=== PATIENT | male | born 1945 | race Caucasian/White ===

== ENCOUNTER 2020-06-28 19:11 | Inpatient (IN) | payer MEDICARE ==
[~2020-06-28 19:11] MED LIST: ASCORBIC ACID500 MG PO; ASPIRIN EC81 MG PO; B-COMPLEX TABL0.4 MG PO; COUMADIN5 MG PO; COUMADIN7.5 MG PO; COZAAR50 MG PO; DITROPAN5 MG PO; KLOR-CON M 1010 MEQ PO; LASIX40 MG PO; LIPITOR40 MG PO; MULTIVITAMINS1 EAC1 PO; NORCO 5-325 TA1 EACH PO; NORVASC5 MG PO; PANTOPRAZOLE SO40 MG PO; PREDNISONE5 MG PO; TERAZOSIN HCL10 MG PO; VALACYCLOVIR1000 MG PO; VIT C-ROSE HIP500 MG PO; VITAMIN E200 UNI1 PO
[2020-06-28 19:56] LABS: BASOPHIL 0.1 % (0-2); EOSINOPHIL 0 % (0-7); HCT 45.5 % (42.0-52.0); HGB 15.5 g/dl (13.2-18.0); LYMPHOCYTE 5.6 % (15-48); MCH 31.4 pg (25.0-31.0); MCHC 34.1 g/dL (32.0-36.0); MCV 92.1 fL (78.0-100.0); MONOCYTE 7.8 % (0-12); MPV 10.1 fL (6.0-9.5); NEUTROPHIL 85.7 % (41-80); NRBC 0; PLT 273 K/uL (150-400); RBC 4.94 M/uL (4.70-6.00); RDW 13.2 % (11.5-14.0)
[2020-06-28 19:59] LABS: ALBUMIN 3.7 g/dL (3.4-5.0); BILIRUBIN - TOTAL 1.2 mg/dL (0.2-1.0); BUN/CREAT RATIO (CALC) 13.9 RATIO; CREATININE 1.37 mg/dL (0.67-1.17); GLOBULIN (CALCULATION) 3.8 g/dL; POTASSIUM 3.4 mmol/L (3.5-5.1); TOTAL PROTEIN 7.5 g/dL (6.4-8.2)
[2020-06-28 20:01] LABS: INR 2.53 (0.9-1.2); PTT 47.9 SECONDS (22.2-34.7); WBC 21.4 K/uL (4.0-10.5)
[2020-06-28 20:03] LABS: LACTIC ACID 2.2 mmol/L (0.4-1.9)
[2020-06-28 20:05] LABS: BILIRUBIN NEGATIVE (NEGATIVE); BLOOD 3+ Ery/uL (NEGATIVE); CLARITY CLEAR (CLEAR); COLOR YELLOW (YELLOW); GLUCOSE (U) NORMAL (NORMAL); LEUKOCYTES 1+ Leu/uL (NEGATIVE); NITRITE NEGATIVE (NEGATIVE); PROTEIN 1+ mg/dL (NEGATIVE); UROBILINOGEN 0.2 mg/dL (0.2-1.0)
[2020-06-28 20:18] LABS: BACTERIA 3+; SQUAMOUS EPITHELIAL CELLS RARE; URINARY WBC 20-50
[2020-06-28 20:32] LABS: CORONAVIRUS 2019 SARS-COV-2 NEGATIVE (NEGATIVE); INFLUENZA A NAA NEGATIVE (NEGATIVE)
[2020-06-28] MEDS ORDERED: ALFUZOSIN HCL E10 MG PO (21:41)
[2020-06-28] MEDS ORDERED: FINASTERIDE5 MG PO (21:41)
[2020-06-28] MEDS ORDERED: TRAZODONE HCL50 MG PO (21:42)
[2020-06-28] MEDS ORDERED: WARFARIN SODIUM5 MG PO (21:44)
[2020-06-28] MEDS ORDERED: NORVASC5 MG PO (23:43)
[2020-06-28] MEDS ORDERED: LASIX40 MG PO (23:44)
[2020-06-28] MEDS ORDERED: LIPITOR40 MG PO (23:44)
[2020-06-28] MEDS ORDERED: COZAAR50 MG PO (23:45)
[2020-06-28] MEDS ORDERED: MULTI-DAY PLUS1 EAC1 PO (23:46)
[2020-06-28] MEDS ORDERED: TERAZOSIN HCL10 MG PO (23:47)
[2020-06-28] MEDS ORDERED: JANTOVEN5 MG PO (23:48)
[2020-06-28] MEDS ORDERED: WARFARIN SODIU2.5 MG PO (23:49)
--- NOTE | 2020-06-29 01:36 | NUR ---
2310: PT RECIEVED ADMIT FROM ED. VSS. PT ORIENTED TO ROOM.
[2020-06-29 06:48] LABS: BASOPHIL 0.2 % (0-2); EOSINOPHIL 0.1 % (0-7); HCT 37.1 % (42.0-52.0); HGB 12.8 g/dl (13.2-18.0); MCH 31.8 pg (25.0-31.0); MCHC 34.5 g/dL (32.0-36.0); MCV 92.3 fL (78.0-100.0); MONOCYTE 3.3 % (0-12); NRBC 0; PLT 209 K/uL (150-400); RBC 4.02 M/uL (4.70-6.00); RDW 13.2 % (11.5-14.0); WBC 15.9 K/uL (4.0-10.5)
[2020-06-29 06:49] LABS: NEUTROPHIL 91.9 % (41-80)
[2020-06-29 07:01] LABS: INR 2.96 (0.9-1.2); PROTHROMBIN TIME 29.4 SECONDS (11.4-13.6)
[2020-06-29 07:16] LABS: ALBUMIN 3.1 g/dL (3.4-5.0); BILIRUBIN - TOTAL 1.3 mg/dL (0.2-1.0); BUN/CREAT RATIO (CALC) 17.3 RATIO; CREATININE 1.27 mg/dL (0.67-1.17); GLOBULIN (CALCULATION) 3.2 g/dL; TOTAL PROTEIN 6.3 g/dL (6.4-8.2)
[2020-06-29] MEDS ORDERED: ADULT LOW DOSE81 MG PO (09:21)
[2020-06-29] MEDS ORDERED: PROTONIX 40MG T40 MG PO (09:21)
[2020-06-29] MEDS ORDERED: K-DUR20 MEQ PO (09:22)
--- NOTE | 2020-06-29 14:01 | NUR ---
1230 BLADDER SCAN PERFORMED, 297 ML NOTED. ABY DREW AND DR LOMBARDO NOTIFIED
[2020-06-30 06:13] LABS: BASOPHIL 0.3 % (0-2); EOSINOPHIL 1.6 % (0-7); HCT 36.5 % (42.0-52.0); HGB 12.5 g/dl (13.2-18.0); LYMPHOCYTE 7.2 % (15-48); MCH 31.2 pg (25.0-31.0); MCHC 34.2 g/dL (32.0-36.0); MONOCYTE 9.9 % (0-12); MPV 10.5 fL (6.0-9.5); NEUTROPHIL 80.4 % (41-80); NRBC 0; PLT 197 K/uL (150-400); RBC 4.01 M/uL (4.70-6.00); RDW 13.1 % (11.5-14.0); WBC 15.8 K/uL (4.0-10.5)
[2020-06-30 06:25] LABS: INR 3.42 (0.9-1.2); PROTHROMBIN TIME 32.9 SECONDS (11.4-13.6)
[2020-06-30 06:40] LABS: ALBUMIN 2.6 g/dL (3.4-5.0); BILIRUBIN - TOTAL 0.8 mg/dL (0.2-1.0); BUN/CREAT RATIO (CALC) 16.3 RATIO; CREATININE 1.04 mg/dL (0.67-1.17); GLOBULIN (CALCULATION) 3.5 g/dL; POTASSIUM 3.4 mmol/L (3.5-5.1); TOTAL PROTEIN 6.1 g/dL (6.4-8.2)
--- NOTE | 2020-07-01 00:20 | NUR ---
0005: Yris RIBERA APRN NOTIFIED OF BETSY 101.4
[2020-07-01 06:42] LABS: BASOPHIL 0.2 % (0-2); EOSINOPHIL 0.1 % (0-7); HCT 37.7 % (42.0-52.0); MCH 31.2 pg (25.0-31.0); MCHC 34.5 g/dL (32.0-36.0); MCV 90.4 fL (78.0-100.0); MONOCYTE 8.1 % (0-12); MPV 10.5 fL (6.0-9.5); NEUTROPHIL 84.9 % (41-80); NRBC 0; PLT 205 K/uL (150-400); RBC 4.17 M/uL (4.70-6.00); RDW 12.8 % (11.5-14.0); WBC 12.8 K/uL (4.0-10.5)
[2020-07-01 06:54] LABS: INR 2.41 (0.9-1.2)
[2020-07-01 07:00] LABS: ALBUMIN 2.9 g/dL (3.4-5.0); BILIRUBIN - TOTAL 0.9 mg/dL (0.2-1.0); BUN/CREAT RATIO (CALC) 15.3 RATIO; CREATININE 1.11 mg/dL (0.67-1.17); GLOBULIN (CALCULATION) 3.7 g/dL; MAGNESIUM 1.5 mg/dL (1.8-2.4); PHOSPHORUS 2.4 mg/dL (2.6-4.7); POTASSIUM 3.2 mmol/L (3.5-5.1); TOTAL PROTEIN 6.6 g/dL (6.4-8.2)
--- NOTE | 2020-07-01 14:58 | NUR ---
07/01/20 Mr. Walsh is a 75 y/o gentleman dx with urosepsis. He will be transferred to [facility]. He is a of the [place] war. Ms. Walsh reports that Mr. Walsh is declared 10% disabled through [employer]. They have not been able to receive [employer] Benefits. Ms. Walsh was educated to the presumed agent orange benefits for veterans who were "boots on the ground" in [place]. The contact telephone number was provided. - Mr. Walsh experiences PTSD. He is treated by his PCP. They were not interested in psychiatric services at this time.
== END 2020-07-01 16:04 | disposition other institution (70) | DRG 871 ==
LOC: FER 19:11 → FMS 22:02
PROVIDERS: Emergency Medicine; Nurse Practitioner; ADMIT Internal Medicine
DX: A41.9 Sepsis, unspecified organism (principal); G92 Toxic encephalopathy; I33.0 Acute and subacute infective endocarditis; N30.00 Acute cystitis without hematuria; N17.9 Acute kidney failure, unspecified; I50.32 Chronic diastolic (congestive) heart failure; R65.20 Severe sepsis without septic shock; I10 Essential (primary) hypertension; Z20.822 Contact with and (suspected) exposure to COVID-19; E78.5 Hyperlipidemia, unspecified; I48.0 Paroxysmal atrial fibrillation; F03.90 Unspecified dementia, unspecified severity, without behavioral disturbance, psychotic disturbance, mood disturbance, and anxiety; G47.33 Obstructive sleep apnea (adult) (pediatric); F43.10 Post-traumatic stress disorder, unspecified; Z95.2 Presence of prosthetic heart valve; Z79.01 Long term (current) use of anticoagulants; N40.0 Benign prostatic hyperplasia without lower urinary tract symptoms; Z90.49 Acquired absence of other specified parts of digestive tract
CPT/HCPCS: 36415; 70450; 71250; 80053; 81001; 83605; 83735; 83880; 84100; 84153; 84484; 85025; 85610; 85730; 87040; 87076; 87088; 87186; 93005; 97116; 97162; 97166; 97530-GP; 97535; J0360; J0696; J2185; J2543; J3370; J3475; J7030; J7050; J7120; U0002